=== PATIENT | female | born 1970 | race Caucasian/White ===

== ENCOUNTER 2016-08-03 08:42 | Inpatient (IN) | payer OTHER ==
[~2016-08-03] VITALS: Ht 152.4 cm; Wt 79.8 kg
[~2016-08-03 08:42] MED LIST: BUSP5TAB59 PO; FLUT0.0529 NAE; LISI-461 PO; OXYB5TAB PO; SYN112 PO; VENL-273 PO
[2016-08-03] MEDS ORDERED: SODIUM CHLORIDE 0.9% 1000ML 1,000 ML IV SCH (08:51)
--- NOTE | 2016-08-03 09:07 | DIAGNOSTIC IMAGING REPORT ---
CT OF THE HEAD WITHOUT CONTRAST CLINICAL HISTORY: The liver. Numbness and tingling in arm and face. COMPARISON STUDY: Head CT November 30, 2014. CT DOSE: 569.73 mGy.cm TECHNIQUE: Helical axial images of the head were obtained without IV contrast. Automated exposure control was utilized for the study. FINDINGS: No acute intracranial hemorrhage, midline shift or mass effect is present. Ventricular system is normal. Basilar cisterns are patent. There are no extra-axial collections. Jewell-white differentiation is maintained and there are no findings to suggest acute dural sinus thrombosis or acute territorial infarct. There are no significant calvarial abnormalities. Visualized portions of the sinuses and the metatarsals are clear. IMPRESSION: No acute intracranial findings. Electronically signed by: Xander Garsia M.D. 08/03/2016 9:06 AM Dictated Date/Time: 08/03/2016 8:58 AM
--- NOTE | 2016-08-03 09:15 | EMERGENCY ROOM VISIT NOTE ---
History Report prepared by Vinnie: Meredith Singh Under the Supervision of: Dr. Benigno Holman M.D. First contact with patient: 08:49 Stated Complaint: NUMBNESS/TINGLING ARM AND FACE History of Present Illness The patient is a 46 year old female who presents to the Emergency Room via ALS with complaints of persistent left facial numbness that began 50 minutes prior to arrival. The patient reports that she has had similar symptoms in the past, noting that she has had previous CT scans. She states that she first noticed a high pitched sound in her left ear that then developed into static noises in her bilateral ears. The patient reports that she became dizzy and then noticed left facial numbness. She additionally associates left arm weakness. The patient associates nausea with her symptoms today that has been resolving. She states that she has a history of hypertension. Source of History: patient Onset: 50 minutes prior to arrival Position: other (facial, left side) Quality: numbness Timing: other (persistent) Associated Symptoms: + nausea, + weakness (left arm) Note: Associated Symtpoms: high pitched sound in left ear, static noise in bilateral ears, dizziness Review of Systems See HPI for pertinent positives & negatives. A total of 10 systems reviewed and were otherwise negative. Past Medical & Surgical Medical Problems: (1) History of kidney stones (2) HTN (hypertension) (3) TIA (transient ischemic attack) Surgical Problems: (1) History of hysterectomy Family History Cancer Diabetes mellitus Gallbladder disease Heart disease Social History Smoking Status: Never Smoker Alcohol Use: none Drug Use: none Marital Status: Housing Status: lives with family Occupation Status: employed Current/Historical Medications Scheduled Buspirone Hcl (Buspirone Hcl), 5 MG PO BID Levothyroxine Sodium (Synthroid), 112 MCG PO DAILY Lisinopril (Zestril), 10 MG PO DAILY Oxybutynin Chloride (Oxybutynin Chloride Er), 5 MG PO DAILY Venlafaxine Hcl (Venlafaxine Hcl Er), 225 MG PO DAILY Allergies Coded Allergies: Sulfamethoxazole (Verified Allergy, Intermediate, hives, 08/03/16) Erythromycin (Unverified Allergy, Mild, 08/03/16) Clarithromycin (Verified Allergy, Unknown, 08/03/16) Physical Exam Vital Signs Date Time Temp Pulse Resp B/P Pulse Ox O2 Delivery O2 Flow Rate FiO2 08/03/16 12:00 70 16 134/84 96 Room Air 08/03/16 10:55 77 15 94 08/03/16 10:50 83 19 96 08/03/16 10:49 132/87 08/03/16 10:45 79 18 95 08/03/16 09:27 78 16 95 Room Air 08/03/16 09:22 76 15 96 Room Air 08/03/16 09:17 80 16 96 Room Air 08/03/16 09:16 131/93 08/03/16 09:12 77 13 97 Room Air 08/03/16 09:11 140/89 08/03/16 09:07 78 17 98 Room Air 08/03/16 09:04 82 08/03/16 09:02 117/67 08/03/16 08:55 94 Room Air 08/03/16 08:55 37.3 76 18 117/67 97 Room Air Physical Exam GENERAL: Patient awake, alert, oriented x 3. Patient follows commands. Patient does not appear toxic. Patient is adequately hydrated and well- nourished. SKIN: No erythema, pallor, cyanosis or rash HEENT: Normal head, pupils equal, reactive to light and accommodation. Ears normal. Oral cavity and posterior pharynx appear normal. Neck: Without adenopathy, no neck vein distention. LUNGS: Clear to auscultation. No wheezes, no rales, no rhonchi. HEART: No murmurs. No gallops. No rubs ABDOMEN: No masses, no rebound, no hepatomegaly or splenomegaly. EXTREMITIES: No signs of trauma. No pedal or pretibial edema. No calf or thigh tenderness. NEUROLOGIC: Patient complains of some slight numbness on the left side of face, NIH stroke score of 1, no facial droop. Medical Decision & Procedures ER Provider Diagnostic Interpretation: Radiology results as stated below per my review and radiologist interpretation: CT OF THE HEAD WITHOUT CONTRAST CLINICAL HISTORY: The liver. Numbness and tingling in arm and face. COMPARISON STUDY: Head CT November 30, 2014. CT DOSE: 569.73 mGy.cm TECHNIQUE: Helical axial images of the head were obtained without IV contrast. Automated exposure control was utilized for the study. FINDINGS: No acute intracranial hemorrhage, midline shift or mass effect is present. Ventricular system is normal. Basilar cisterns are patent. There are no extra-axial collections. Jewell-white differentiation is maintained and there are no findings to suggest acute dural sinus thrombosis or acute territorial infarct. There are no significant calvarial abnormalities. Visualized portions of the sinuses and the metatarsals are clear. IMPRESSION: No acute intracranial findings. Electronically signed by: Xander Garsia M.D. 08/03/2016 9:06 AM Dictated Date/Time: 08/03/2016 8:58 AM NECK MRA HISTORY: Left face and arm numbness. stroke? TECHNIQUE: [id number] and gadolinium-enhanced MRA of the neck was performed both before and after the intravenous administration of contrast. All measurements were calculated based on NASCET criteria. COMPARISON STUDY: None. FINDINGS: The aortic arch and proximal great vessels are widely patent. There is no significant stenosis, occlusion, or dissection identified within the bilateral common carotid, internal carotid, or vertebral arteries. 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 The proximal portion of the right subclavian artery is not well visualized. IMPRESSION: No significant stenosis, occlusion, or dissection identified within the carotid or vertebral arteries. Electronically signed by: Quentin Barraza M.D. 08/03/2016 2:24 PM Dictated Date/Time: 08/03/2016 2:20 PM The status of this report is Signed. Draft = Not yet reviewed or approved by Radiologist. Signed = Reviewed and approved by Radiologist. Brain MRA HISTORY: Left face and arm numbness. Stroke symptoms. TECHNIQUE: 3-D [id number] MRA of the brain was performed without contrast. COMPARISON STUDY: Head CT 08/03/2016. FINDINGS: Visualized intracranial internal carotid arteries, distal vertebral arteries, and basilar artery are widely patent. There is no significant stenosis, occlusion, or aneurysm seen within the bilateral ACAs, MCAs, or third hand. Incidental note is made of a hypoplastic distal right vertebral artery and right A1 segment. IMPRESSION: No significant stenosis, occlusion, or aneurysm within the [place]. Electronically signed by: Quentin Barraza M.D. 08/03/2016 2:14 PM Dictated Date/Time: 08/03/2016 2:11 PM The patient's brain MRI report is pending. Laboratory Results 08/03/16 09:10 Red Blood Count 4.89, Mean Corpuscular Volume 86.9, Mean Corpuscular Hemoglobin 29.7, Mean Corpuscular Hemoglobin Concent 34.1, Mean Platelet Volume 9.1, Neutrophils (%) (Auto) 42.0, Lymphocytes (%) (Auto) 43.8, Monocytes (%) (Auto) 7.9, Eosinophils (%) (Auto) 5.1, Basophils (%) (Auto) 0.8, Neutrophils # (Auto) 3.05, Lymphocytes # (Auto) 3.18, Monocytes # (Auto) 0.57, Eosinophils # (Auto) 0.37, Basophils # (Auto) 0.06 08/03/16 09:10 Test 08/03/16 09:03 08/03/16 09:10 08/03/16 09:12 Bedside Prothrombin Time INR 0.9 (0.9-1.1) Bedside Glucose 110 mg/dl (70-90) White Blood Count 7.26 K/uL (4.8-10.8) Red Blood Count 4.89 M/uL (4.2-5.4) Hemoglobin 14.5 g/dL (12.0-16.0) Hematocrit 42.5 % (37-47) Mean Corpuscular Volume 86.9 fL (80-100) Mean Corpuscular Hemoglobin 29.7 pg (25-34) Mean Corpuscular Hemoglobin Concent 34.1 g/dl (32-36) Platelet Count 310 K/uL (130-400) Mean Platelet Volume 9.1 fL (7.4-10.4) Neutrophils (%) (Auto) 42.0 % Lymphocytes (%) (Auto) 43.8 % Monocytes (%) (Auto) 7.9 % Eosinophils (%) (Auto) 5.1 % Basophils (%) (Auto) 0.8 % Neutrophils # (Auto) 3.05 K/uL (1.4-6.5) Lymphocytes # (Auto) 3.18 K/uL (1.2-3.4) Monocytes # (Auto) 0.57 K/uL (0.11-0.59) Eosinophils # (Auto) 0.37 K/uL (0-0.5) Basophils # (Auto) 0.06 K/uL (0-0.2) RDW Standard Deviation 41.8 fL (36.4-46.3) RDW Coefficient of Variation 13.0 % (11.5-14.5) Immature Granulocyte % (Auto) 0.4 % Immature Granulocyte # (Auto) 0.03 K/uL (0.00-0.02) Prothrombin Time 10.4 SECONDS (9.0-12.0) Prothromb Time International Ratio 1.0 (0.9-1.1) Activated Partial Thromboplast Time 25.9 SECONDS (21.0-31.0) Partial Thromboplastin Ratio 1.0 Anion Gap 7.0 mmol/L (3-11) Est Creatinine Clear Calc Drug Dose 83.0 ml/min Estimated GFR () 102.6 Estimated GFR (Non- 88.5 BUN/Creatinine Ratio 17.8 (10-20) Calcium Level 9.2 mg/dl (8.5-10.1) Total Creatine Kinase 105 U/L (26-192) Creatine Kinase MB 1.4 ng/ml (0.5-3.6) Creatine Kinase MB Ratio 1.3 (0-3.0) Troponin I < 0.015 ng/ml (0-0.045) Estimated Average Glucose 120 mg/dl Hemoglobin A1c 5.8 % (4.5-5.6) Laboratory results as stated above per my review. Medications Administered Medications (Trade) Dose Ordered Sig/Harley Route Start Time Stop Time Status Last Admin Dose Admin Sodium Chloride (Nss 1000ml) 1,000 ml @ 50 mls/hr Q20H IV 08/03/16 08:51 08/03/16 13:39 DC 08/03/16 09:29 50 MLS/HR Aspirin (Ecotrin Tab) 325 mg ONE ONCE PO 08/03/16 10:00 08/03/16 10:01 DC 08/03/16 10:02 325 MG ECG Indication: weakness, other (numbness) Rate (beats per minute): 78 Rhythm: normal sinus Findings: nonspecific-ST abn, other (sinus arrhythmia) ED Course 0850: Past medical records reviewed. The patient was evaluated in room B1. A complete history and physical examination was performed. 850: The patient was taken right over for a CT scan. Ordered Sodium Chloride 1000 ml @ 50 mls/hr IV. 01: I arrived back to the patient's room to reevaluate the patient. 904: I discussed the patients case with Dr. Garsia, Radiology. 0906: I discussed the patients case with Krissy [facility]. He is going to evaluate the patient over the Stroke Cart. 0936: I reevaluated the patient and she is currently being examined by Dr. Cruz. 0950: I reevaluated the patient and Dr. Cruz has decided that the patient needs aspirin and an MRI at this time. 1000: Ordered Aspirin 325 mg PO. 1220: I reevaluated the patient and she is resting comfortably, awaiting an MRI. I discussed the exam findings with her thus far and I discussed the treatment plan. She verbalized complete understanding and agreement. She will be evaluated for further treatment. 1226: I discussed the patients case with Kelechi Nash PA-C. She is going to evaluate the patient for further treatment. 1235: I reevaluated the patient at this time and she is doing well. I updated her as well. Medical Decision Nurses notes reviewed. Medical history sheet reviewed. Differential diagnosis includes but is not limited to: CVA, TIA, Meniere's Disease, vertigo, vestibular neuronitis. The patient is here with rather sudden onset of left facial tingling and left arm heaviness. Patient also had an unusual piercing sound in both ears at onset prior to arrival. A stroke alert was called and the patient had multiple imaging and labs performed. We see above. CT scan did not reveal a hemorrhagic stroke. Her NIH stroke score was extremely low and therefore she did not meet criteria for TPA. This case was discussed with the Kriss[facility] neurologist. Tele stroke was used. MRI was also ordered but the results of that test are not yet back. In the meantime, the patient will require further evaluation in the hospital. I discussed care with the patient, her and with the hospitalist in addition to the stroke neurologist. Consults Time Called: 902 Consulting Physician: Krissy [facility] Returned Call: [phone] I discussed the patients case with Krissy [facility] Neu[facility]. He is going to evaluate the patient over the Stroke Cart. Additional Consults: Time Called: 1223 Consulted Physician: Kelechi Nash PA-C Returned Call: [phone] Additional Comments: I discussed the patients case with Kelechi Nash PA-C. She is going to evaluate the patient for further treatment. Impression Primary Impression: Stroke-like symptoms Scribe Attestation The scribe's documentation has been prepared under my direction and personally reviewed by me in its entirety. I confirm that the note above accurately reflects all work, treatment, procedures, and medical decision making performed by me. Departure Information Dispostion Being Evaluated By Hospitalist Referrals Filemon Smith M.D. (PCP) Stroke History Time Last Known Well 0800 Stroke t-PA Criteria Reviewed Does NOT meet criteria for t-PA Reason t-PA Not Given Treatment not indicated (Low NIH stroke score)
[2016-08-03 09:20] LABS: BASO % 0.8 %; BASO ABS # 0.06 K/uL (0-0.2); COMPLETE YES; EOS % 5.1 %; HEMATOCRIT 42.5 % (37-47); IG% 0.4 %; LYMPH % 43.8 %; LYMPH ABS # 3.18 K/uL (1.2-3.4); MEAN CELL VOLUME 86.9 fL (80-100); MEAN CORPUSCULAR HEMOGLOBIN 29.7 pg (25-34); MEAN CORPUSCULAR HGB CONC 34.1 g/dl (32-36); MEAN PLATELET VOLUME 9.1 fL (7.4-10.4); MONO % 7.9 %; PLATELET COUNT 310 K/uL (130-400); RED BLOOD COUNT 4.89 M/uL (4.2-5.4); WHITE BLOOD COUNT 7.26 K/uL (4.8-10.8)
[2016-08-03 09:30] LABS: PROTHROMBIN TIME (PATIENT) 10.4 SECONDS (9.0-12.0)
[2016-08-03 09:46] LABS: BLOOD UREA NITROGEN 14 mg/dl (7-18); BUN/CREATININE RATIO 17.8 (10-20); CARBON DIOXIDE 29 mmol/L (21-32); CHLORIDE 102 mmol/L (98-107); CREATININE 0.79 mg/dl (0.60-1.20); GLUCOSE 104 mg/dl (70-99); POTASSIUM 3.6 mmol/L (3.5-5.1); SODIUM 138 mmol/L (136-145)
[2016-08-03 09:50] LABS: CKMB/CK RATIO 1.3 (0-3.0)
[2016-08-03 09:51] LABS: CALCIUM 9.2 mg/dl (8.5-10.1)
[2016-08-03] MEDS ORDERED: FLUT0.15 NAE (09:55)
[2016-08-03] MEDS ORDERED: ASPIRIN 325 MG ECTAB PO ONE (10:00)
[2016-08-03] MEDS ORDERED: ONDANSETRON INJ 2 MG/ML 2 ML VIAL IV PRN (13:15)
[2016-08-03] MEDS ORDERED: PHARMACIST DISCHARGE MED REC CONSULT PRN (13:15)
[2016-08-03 13:57] LABS: ESTIMATED AVERAGE GLUCOSE 120 mg/dl; HA1C FLAG Normal (Normal)
--- NOTE | 2016-08-03 14:15 | DIAGNOSTIC IMAGING REPORT ---
Brain MRA HISTORY: Left face and arm numbness. Stroke symptoms. TECHNIQUE: 3-D [id number] MRA of the brain was performed without contrast. COMPARISON STUDY: Head CT 08/03/2016. FINDINGS: Visualized intracranial internal carotid arteries, distal vertebral arteries, and basilar artery are widely patent. There is no significant stenosis, occlusion, or aneurysm seen within the bilateral ACAs, MCAs, or sheriffs officer. Incidental note is made of a hypoplastic distal right vertebral artery and right A1 segment. IMPRESSION: No significant stenosis, occlusion, or aneurysm within the [place]. Electronically signed by: Quentin Barraza M.D. 08/03/2016 2:14 PM Dictated Date/Time: 08/03/2016 2:11 PM
[2016-08-03 14:25] VITALS: BP 117/84; PULSE 79; TEMP 36.7; O2SAT 97; Ht 152.4 cm; Wt 79.8 kg
--- NOTE | 2016-08-03 14:25 | DIAGNOSTIC IMAGING REPORT ---
NECK MRA HISTORY: Left face and arm numbness. stroke? TECHNIQUE: [id number] and gadolinium-enhanced MRA of the neck was performed both before and after the intravenous administration of contrast. All measurements were calculated based on NASCET criteria. COMPARISON STUDY: None. FINDINGS: The aortic arch and proximal great vessels are widely patent. There is no significant stenosis, occlusion, or dissection identified within the bilateral common carotid, internal carotid, or vertebral arteries. 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 The proximal portion of the right subclavian artery is not well visualized. IMPRESSION: No significant stenosis, occlusion, or dissection identified within the carotid or vertebral arteries. Electronically signed by: Quentin Barraza M.D. 08/03/2016 2:24 PM Dictated Date/Time: 08/03/2016 2:20 PM
--- NOTE | 2016-08-03 14:50 | DIAGNOSTIC IMAGING REPORT ---
MRI OF THE BRAIN COMBO CLINICAL HISTORY: Left facial and left upper extremity tingling/numbness. COMPARISON STUDY: CT of the brain dated 08/03/2016. MRI of the brain dated 01/24/2008. TECHNIQUE: MRI of the brain was performed utilizing various T1 and T2-weighted sequences in the axial, sagittal, and coronal planes. Contrast-enhanced sequences were acquired following the administration of 8 cc of Gadavist. FINDINGS: Brain parenchyma: A 9 mm enhancing pineal nodule has not significant change from 2008. The brain parenchyma is otherwise normal in appearance. There is no hemorrhage or mass effect. There is no restricted diffusion to suggest acute ischemia. No enhancing mass lesion is identified on the postcontrast images. Jewell-white matter differentiation is preserved. No extra-axial fluid collection is seen. The cerebellar tonsils are normal in configuration. Ventricles, sulci, and cisterns: Normal in configuration. Pituitary and sella: Partially empty sella is incidentally noted. Intracranial vasculature: Normal flow voids are maintained at the skull base. Orbits: The bony orbits are grossly intact. Orbital contents are normal in appearance. Sinuses and mastoids: Clear. Calvarium: Unremarkable. Cervical cord: Partially visualized cervical spinal cord is normal in morphology and signal intensity. IMPRESSION: 1. No acute intracranial abnormality. 2. A 9 mm enhancing pineal nodule has not significant changed dating back to 2007. Electronically signed by: Luis Sarabia M.D. 08/03/2016 2:49 PM Dictated Date/Time: 08/03/2016 2:43 PM
[2016-08-03] MEDS: SODIUM CHLORIDE 0.9% 1000ML 1,000 ML IV SCH (15:17)
--- NOTE | 2016-08-03 15:42 | History and Physical ---
History & Physical Date of Service August 03, 2016. History & Physical This is a 46 year old female with a PMH of hypothyroidism, HTN, depression/ anxiety, overactive bladder presents with facial numbness, L sided ear pain, high pitched sounds and dizziness. She states it began earlier today and she came to the ER; stroke alert was called and [facility] tele stroke consult obtained ; no indication for t-PA. Head CT obtained, and no acute findings. Recommendation to give full dose aspirin and then obtain MRI/MRA and stroke w/ up. I saw the patient in room 207, her only complaint is a left sided facial numbness. No dizziness or headaches at this time. No motor dysfunction. VITALS: Last Vital Signs Documentation Date Time Temp Pulse Resp B/P Pulse Ox O2 Delivery O2 Flow Rate FiO2 08/03/16 14:25 36.7 79 16 117/84 97 Room Air GEN: no acute distress HEENT: no facial droop noted CVS: +s1, s2, rrr LUNGS: cta b/l, no wheezing NEURO: CN II-XII intact, subjective numbness/tingling at L face Numbness/Tingling of L side of Face Head CT negative Brain MRI/MRA of head/neck negative for acute findings echo done and results pending will check [place], B12, TSH, Mg neuro consult pending Can hold Lisinopril for HTN Otherwise, we will restart synthroid, Effexor, Buspar, and oxybutynin PT/OT/speech
[2016-08-03 16:00] VITALS: O2SAT 98
--- NOTE | 2016-08-03 16:03 | Neurology Consultation ---
Neurology Consultation Date of Consultation: August 03, 2016. Attending Physician: Angela Amor DO Primary Care Physician: Filemon Smith M.D. Reason for Consultation: stroke like symptoms possible TIA History of Present Illness Source: patient Mónica is a 46 year old female who has a PMH HTN, hypothyroid and remote history of migraines. She was working at [employer] and she started having a high pitched sound in her ears which resolved in seconds she was dizzy and nausea she sat down and then she had persistent left facial numbness and tingling and left arm tingling. She states everything has resolved but she still has and odd feeling in her face and arm but the numbness and tingling has resolved. Her history of migraine she would have visual aura light sensitive and then a headache. She did have a headache in the ED which was not severe but it was there. She has been in the [facility] recently but denies any tick bites. denies CP, SOB, abdominal pain, vision changes, vomiting, swallow difficulty, slurred speech, falls, hearing loss Past Medical/Surgical History Medical Problems: (1) Stroke-like symptoms Status: Acute Social History Smoking Status: Never smoker Drug Use: none Marital Status: Housing Status: lives with family Occupation Status: employed Allergies Coded Allergies: Sulfamethoxazole (Verified Allergy, Intermediate, hives, 08/03/16) Erythromycin (Unverified Allergy, Mild, 08/03/16) Clarithromycin (Verified Allergy, Unknown, 08/03/16) Current Inpatient Medications Current Inpatient Medications Medications (Trade) Dose Ordered Sig/Harley Route Start Time Stop Time Status Last Admin Dose Admin Acetaminophen (Tylenol Tab) 650 mg Q4H PRN PO 08/03/16 13:15 09/02/16 13:14 Ondansetron HCl (Zofran Inj) 4 mg Q6H PRN IV 08/03/16 13:15 09/02/16 13:14 Atorvastatin Calcium (Lipitor Tab) 40 mg HS ONCE PO 08/03/16 21:00 08/03/16 21:01 Aspirin (Ecotrin Tab) 81 mg QAM PO 08/04/16 09:00 09/03/16 08:59 Miscellaneous Information 1 ea 1 ea UD PRN N/A 08/03/16 13:15 09/02/16 13:14 Sodium Chloride (Nss 1000ml) 1,000 ml @ 100 mls/hr Q10H IV 08/03/16 13:45 09/02/16 13:44 08/03/16 15:17 100 MLS/HR Buspirone HCl (Buspar Tab) 5 mg BID PO 08/03/16 21:00 09/02/16 20:59 Levothyroxine Sodium (Synthroid Tab) 112 mcg DAILYBB PO 08/04/16 06:00 09/03/16 05:59 Oxybutynin Chloride (Ditropan-Xl Tab) 5 mg DAILY PO 08/04/16 09:00 09/03/16 08:59 Venlafaxine HCl (effeXOR EXTENDED REL CAP) 225 mg DAILY PO 08/04/16 09:00 09/03/16 08:59 Physical Exam Vital Signs (Past 24 Hrs): Date Time Temp Pulse Resp B/P Pulse Ox O2 Delivery O2 Flow Rate FiO2 08/03/16 14:25 36.7 79 16 117/84 97 Room Air 08/03/16 13:14 37.3 75 18 116/87 95 08/03/16 12:48 78 08/03/16 12:00 70 16 134/84 96 Room Air 08/03/16 10:55 77 15 94 08/03/16 10:50 83 19 96 08/03/16 10:49 132/87 08/03/16 10:45 79 18 95 08/03/16 09:27 78 16 95 Room Air 08/03/16 09:22 76 15 96 Room Air 08/03/16 09:17 80 16 96 Room Air 08/03/16 09:16 131/93 08/03/16 09:12 77 13 97 Room Air 08/03/16 09:11 140/89 08/03/16 09:07 78 17 98 Room Air 08/03/16 09:04 82 08/03/16 09:02 117/67 08/03/16 08:55 94 Room Air 08/03/16 08:55 37.3 76 18 117/67 97 Room Air Physical Exam: Constitutional: appearance nourished, healthy and normal Ears, Nose, Mouth and Throat: left ear erythema, left face erythema Cardiovascular: normal S-1 and S-2 and regular rate and rhythm Respiratory: clear to auscultation (CTA) and no rales, rhonchi or wheeze Musculoskeletal: no peripheral edema and good distal pulses Skin: erythema left ear and face Eyes: extraocular muscles intact (EOMI) and pupils equal, round and reactive to light (PERRL), slight nystagmus to the left, miotic NEUROLOGIC EXAMINATION: Mental status: Alert and interactive Oriented to full date and location Oriented to person Speech fluent with no evidence of aphasia Cranial Nerves facial symmetry, tongue midline Reflexes: Deep tendon reflexes were symmetrical and graded 2/5. Plantar responses were flexor. Sensory: increased cool sensation on left ear and face Coordination: finger to nose with no bi pass, no tremor Gait/Stance: Posture normal. sitting up in bed Motor: Negative for pronator drift of out stretched arms with eyes closed. biceps triceps deltoids bilaterally 5/5, hip flex plantar flex ext bilaterally 5 /5 Laboratory Results Past 24 Hours: 08/03/16 09:10 Red Blood Count 4.89, Mean Corpuscular Volume 86.9, Mean Corpuscular Hemoglobin 29.7, Mean Corpuscular Hemoglobin Concent 34.1, Mean Platelet Volume 9.1, Neutrophils (%) (Auto) 42.0, Lymphocytes (%) (Auto) 43.8, Monocytes (%) (Auto) 7.9, Eosinophils (%) (Auto) 5.1, Basophils (%) (Auto) 0.8, Neutrophils # (Auto) 3.05, Lymphocytes # (Auto) 3.18, Monocytes # (Auto) 0.57, Eosinophils # (Auto) 0.37, Basophils # (Auto) 0.06 08/03/16 09:10 Test 08/03/16 09:03 08/03/16 09:10 08/03/16 09:12 Bedside Prothrombin Time INR 0.9 (0.9-1.1) Bedside Glucose 110 mg/dl (70-90) White Blood Count 7.26 K/uL (4.8-10.8) Red Blood Count 4.89 M/uL (4.2-5.4) Hemoglobin 14.5 g/dL (12.0-16.0) Hematocrit 42.5 % (37-47) Mean Corpuscular Volume 86.9 fL (80-100) Mean Corpuscular Hemoglobin 29.7 pg (25-34) Mean Corpuscular Hemoglobin Concent 34.1 g/dl (32-36) Platelet Count 310 K/uL (130-400) Mean Platelet Volume 9.1 fL (7.4-10.4) Neutrophils (%) (Auto) 42.0 % Lymphocytes (%) (Auto) 43.8 % Monocytes (%) (Auto) 7.9 % Eosinophils (%) (Auto) 5.1 % Basophils (%) (Auto) 0.8 % Neutrophils # (Auto) 3.05 K/uL (1.4-6.5) Lymphocytes # (Auto) 3.18 K/uL (1.2-3.4) Monocytes # (Auto) 0.57 K/uL (0.11-0.59) Eosinophils # (Auto) 0.37 K/uL (0-0.5) Basophils # (Auto) 0.06 K/uL (0-0.2) RDW Standard Deviation 41.8 fL (36.4-46.3) RDW Coefficient of Variation 13.0 % (11.5-14.5) Immature Granulocyte % (Auto) 0.4 % Immature Granulocyte # (Auto) 0.03 K/uL (0.00-0.02) Prothrombin Time 10.4 SECONDS (9.0-12.0) Prothromb Time International Ratio 1.0 (0.9-1.1) Activated Partial Thromboplast Time 25.9 SECONDS (21.0-31.0) Partial Thromboplastin Ratio 1.0 Anion Gap 7.0 mmol/L (3-11) Est Creatinine Clear Calc Drug Dose 83.0 ml/min Estimated GFR () 102.6 Estimated GFR (Non- 88.5 BUN/Creatinine Ratio 17.8 (10-20) Calcium Level 9.2 mg/dl (8.5-10.1) Total Creatine Kinase 105 U/L (26-192) Creatine Kinase MB 1.4 ng/ml (0.5-3.6) Creatine Kinase MB Ratio 1.3 (0-3.0) Troponin I < 0.015 ng/ml (0-0.045) Estimated Average Glucose 120 mg/dl Hemoglobin A1c 5.8 % (4.5-5.6) Imaging MRI brain with and without contrast-No acute intracranial abnormality. A 9 mm enhancing pineal nodule has not significant changed dating back to 2007. MRA brain - No significant stenosis, occlusion, or aneurysm within the [place]. MRA neck- No significant stenosis, occlusion, or dissection identified within the carotid or vertebral arteries. Impression 46 year old female with left face and arm numbness,tingling Plan 1. MRI and MRA head and neck -no acute findings 2. TTE pending read 3. labs TSH, B12, lyme pending 4. aspirin 81 mg started no on at home- would continue 5. no further imaging needed at this time 6. unclear what the event was 7. will see as outpatient as needed 8. optimize HTN, and cholestrol I have seen and discussed above patient with Dr Thu Garza, neurology Pt seen and examined. Pt is known to me and for years has had L hemianesthesia without identifiable case but indicates that this had resolved. Hx of brief vertigo in past. Today, tinnitus L ear and static bl ears then L hemianesthesia and possible sense that room spinning, with nausea worse with movement. No real headache. Nausea vertigo, tinnitus resolved quickly but residual L hemianesthesia. MRI/A despite ongoing sx neg. Exam provocative head manuevers neg, CN notable for temperature being colder on the anesthetic side and splitting vibration in the forehead with the anesthetic side having more vibration. Rest of exam including motor, sensory, cerebellar gait, reflexes and Romberg were neg or nml. Impression: Unclear nature of sx, possibly peripheral vertigo causing some anxiety and increase in prior neurologic symptoms. There are some nonphysiologic features on exam. Agree with completion of evaluation vascular risk factors. No objection to asa given her hx of hypertension. Dr. Marshall with see pt in follow-up tomorrow. ISAURO Garza MD
[2016-08-03 16:35] VITALS: BP 140/82; PULSE 70; TEMP 36.7; O2SAT 93
[2016-08-03 19:21] VITALS: BP 115/73; PULSE 74; TEMP 36.4; O2SAT 97
[2016-08-03] MEDS: ACETAMINOPHEN 325 MG TAB PO PRN ×2 (19:23→23:24)
[2016-08-03 20:00] VITALS: O2SAT 97
[2016-08-03] MEDS ORDERED: ATORVASTATIN 40 MG TAB PO ONE (21:00)
--- NOTE | 2016-08-03 22:24 | History and Physical ---
History & Physical Date & Time of Service: August 03, 2016 at 17:17 Chief Complaint: Stroke-Like Symptoms, Tia Primary Care Physician: Filemon Smith M.D. History of Present Illness Source: patient, clinic records This is a 46 y/o female with PMH of HTN, hypothyroidism, depression, anxiety, and other problems listed below who presents to the ED with stroke like symptoms. The patient states at 8 am this morning while working in [employer] [facility] she developed left ear high pitched noise and static in both ears, dizziness described as spinning, left facial numbness, left arm heaviness, and nausea. Pt states dizziness and nausea worsened with movement. All symptoms are now resolved except left facial numbness. She reports in the ER she started having a mild dull frontal MCRAE. Prior to this morning she was feeling well. This morning had her usual breakfast of protein drink and coffee. She denies vision change, facial droop, speech or swallowing difficulty, hearing loss, URI symptoms, cough, chest pain, palpitations, SOB, vomiting, diarrhea, dysuria, frequency, calf pain, edema, abnormal bleeding. Past Medical/Surgical History Medical Problems: (1) History of kidney stones Status: Chronic (2) HTN (hypertension) Status: Chronic Surgical Problems: (1) History of hysterectomy Status: Resolved Family History Cancer Diabetes mellitus Gallbladder disease Heart disease No fhx CVA. Social History Smoking Status: Former Smoker (quit 20 y ago) Alcohol Use: socially Drug Use: none Marital Status: Occupational Status: employed Multi-Drug Resistant Organisms History of MDRO: No Allergies Coded Allergies: Sulfamethoxazole (Verified Allergy, Intermediate, hives, 08/03/16) Erythromycin (Unverified Allergy, Mild, 08/03/16) Clarithromycin (Verified Allergy, Unknown, 08/03/16) Home Medications Scheduled Buspirone Hcl (Buspirone Hcl), 5 MG PO BID Levothyroxine Sodium (Synthroid), 112 MCG PO DAILY Lisinopril (Zestril), 10 MG PO DAILY Oxybutynin Chloride (Oxybutynin Chloride Er), 5 MG PO DAILY Venlafaxine Hcl (Venlafaxine Hcl Er), 225 MG PO DAILY Review of Systems Ten systems reviewed and negative except as noted in HPI. Physical Exam Vital Signs Date Time Temp Pulse Resp B/P Pulse Ox O2 Delivery O2 Flow Rate FiO2 08/03/16 16:35 36.7 70 18 140/82 93 Room Air 08/03/16 16:00 98 Room Air 08/03/16 14:25 36.7 79 16 117/84 97 Room Air 08/03/16 13:14 37.3 75 18 116/87 95 08/03/16 12:48 78 08/03/16 12:00 70 16 134/84 96 Room Air 08/03/16 10:55 77 15 94 08/03/16 10:50 83 19 96 08/03/16 10:49 132/87 08/03/16 10:45 79 18 95 08/03/16 09:27 78 16 95 Room Air 08/03/16 09:22 76 15 96 Room Air 08/03/16 09:17 80 16 96 Room Air 08/03/16 09:16 131/93 08/03/16 09:12 77 13 97 Room Air 08/03/16 09:11 140/89 08/03/16 09:07 78 17 98 Room Air 08/03/16 09:04 82 08/03/16 09:02 117/67 08/03/16 08:55 94 Room Air 08/03/16 08:55 37.3 76 18 117/67 97 Room Air General Appearance: WD/WN, no apparent distress, + pertinent finding (pleasant alert 46 y/o female, at bedside ) Head: normocephalic, atraumatic Eyes: normal inspection, PERRL, EOMI ENT: normal ENT inspection, hearing grossly normal, TMs normal, pharynx normal Neck: no JVD, trachea midline Respiratory/Chest: lungs clear, normal breath sounds, no respiratory distress, no accessory muscle use Cardiovascular: regular rate, rhythm, no murmur Abdomen/GI: normal bowel sounds, non tender, soft Extremities/Musculoskelatal: no calf tenderness, no pedal edema Neurologic/Psych: alert, normal mood/affect, oriented x 3, + pertinent finding (no facial droop. no dysarthria. + subjective decreased sensation on left face. no motor or sensory deficits of the extremities.) Skin: normal color, warm/dry Diagnostics Laboratory Results Results Past 24 Hours Test 08/03/16 09:03 08/03/16 09:10 08/03/16 09:12 Range/Units Bedside Prothrombin Time INR 0.9 0.9-1.1 Bedside Glucose 110 70-90 mg/dl White Blood Count 7.26 4.8-10.8 K/uL Red Blood Count 4.89 4.2-5.4 M/uL Hemoglobin 14.5 12.0-16.0 g/dL Hematocrit 42.5 37-47 % Mean Corpuscular Volume 86.9 80-100 fL Mean Corpuscular Hemoglobin 29.7 25-34 pg Mean Corpuscular Hemoglobin Concent 34.1 32-36 g/dl Platelet Count 310 130-400 K/uL Mean Platelet Volume 9.1 7.4-10.4 fL Neutrophils (%) (Auto) 42.0 % Lymphocytes (%) (Auto) 43.8 % Monocytes (%) (Auto) 7.9 % Eosinophils (%) (Auto) 5.1 % Basophils (%) (Auto) 0.8 % Neutrophils # (Auto) 3.05 1.4-6.5 K/uL Lymphocytes # (Auto) 3.18 1.2-3.4 K/uL Monocytes # (Auto) 0.57 0.11-0.59 K/uL Eosinophils # (Auto) 0.37 0-0.5 K/uL Basophils # (Auto) 0.06 0-0.2 K/uL RDW Standard Deviation 41.8 36.4-46.3 fL RDW Coefficient of Variation 13.0 11.5-14.5 % Immature Granulocyte % (Auto) 0.4 % Immature Granulocyte # (Auto) 0.03 0.00-0.02 K/uL Prothrombin Time 10.4 9.0-12.0 SECONDS Prothromb Time International Ratio 1.0 0.9-1.1 Activated Partial Thromboplast Time 25.9 21.0-31.0 SECONDS Partial Thromboplastin Ratio 1.0 Sodium Level 138 136-145 mmol/L Potassium Level 3.6 3.5-5.1 mmol/L Chloride Level 102 98-107 mmol/L Carbon Dioxide Level 29 21-32 mmol/L Anion Gap 7.0 3-11 mmol/L Blood Urea Nitrogen 14 7-18 mg/dl Creatinine 0.79 0.60-1.20 mg/dl Est Creatinine Clear Calc Drug Dose 83.0 ml/min Estimated GFR () 102.6 Estimated GFR (Non- 88.5 BUN/Creatinine Ratio 17.8 10-20 Random Glucose 104 70-99 mg/dl Calcium Level 9.2 8.5-10.1 mg/dl Total Creatine Kinase 105 26-192 U/L Creatine Kinase MB 1.4 0.5-3.6 ng/ml Creatine Kinase MB Ratio 1.3 0-3.0 Troponin I < 0.015 0-0.045 ng/ml Estimated Average Glucose 120 mg/dl Hemoglobin A1c 5.8 4.5-5.6 % Diagnostic Radiology CT OF THE HEAD WITHOUT CONTRAST CLINICAL HISTORY: The liver. Numbness and tingling in arm and face. COMPARISON STUDY: Head CT November 30, 2014. CT DOSE: 569.73 mGy.cm TECHNIQUE: Helical axial images of the head were obtained without IV contrast. Automated exposure control was utilized for the study. FINDINGS: No acute intracranial hemorrhage, midline shift or mass effect is present. Ventricular system is normal. Basilar cisterns are patent. There are no extra-axial collections. Jewell-white differentiation is maintained and there are no findings to suggest acute dural sinus thrombosis or acute territorial infarct. There are no significant calvarial abnormalities. Visualized portions of the sinuses and the metatarsals are clear. IMPRESSION: No acute intracranial findings. [~ rep ct add3]] NECK MRA HISTORY: Left face and arm numbness. stroke? TECHNIQUE: [id number] and gadolinium-enhanced MRA of the neck was performed both before and after the intravenous administration of contrast. All measurements were calculated based on NASCET criteria. COMPARISON STUDY: None. FINDINGS: The aortic arch and proximal great vessels are widely patent. There is no significant stenosis, occlusion, or dissection identified within the bilateral common carotid, internal carotid, or vertebral arteries. 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 The proximal portion of the right subclavian artery is not well visualized. IMPRESSION: No significant stenosis, occlusion, or dissection identified within the carotid or vertebral arteries. Brain MRA HISTORY: Left face and arm numbness. Stroke symptoms. TECHNIQUE: 3-D [id number] MRA of the brain was performed without contrast. COMPARISON STUDY: Head CT 08/03/2016. FINDINGS: Visualized intracranial internal carotid arteries, distal vertebral arteries, and basilar artery are widely patent. There is no significant stenosis, occlusion, or aneurysm seen within the bilateral ACAs, MCAs, or collar band creaser. Incidental note is made of a hypoplastic distal right vertebral artery and right A1 segment. IMPRESSION: No significant stenosis, occlusion, or aneurysm within the [place] of [place]. 8 MRI OF THE BRAIN COMBO CLINICAL HISTORY: Left facial and left upper extremity tingling/numbness. COMPARISON STUDY: CT of the brain dated 08/03/2016. MRI of the brain dated 01/24/2008. TECHNIQUE: MRI of the brain was performed utilizing various T1 and T2-weighted sequences in the axial, sagittal, and coronal planes. Contrast-enhanced sequences were acquired following the administration of 8 cc of Gadavist. FINDINGS: Brain parenchyma: A 9 mm enhancing pineal nodule has not significant change from 2007. The brain parenchyma is otherwise normal in appearance. There is no hemorrhage or mass effect. There is no restricted diffusion to suggest acute ischemia. No enhancing mass lesion is identified on the postcontrast images. Jewell-white matter differentiation is preserved. No extra-axial fluid collection is seen. The cerebellar tonsils are normal in configuration. Ventricles, sulci, and cisterns: Normal in configuration. Pituitary and sella: Partially empty sella is incidentally noted. Intracranial vasculature: Normal flow voids are maintained at the skull base. Orbits: The bony orbits are grossly intact. Orbital contents are normal in appearance. Sinuses and mastoids: Clear. Calvarium: Unremarkable. Cervical cord: Partially visualized cervical spinal cord is normal in morphology and signal intensity. IMPRESSION: 1. No acute intracranial abnormality. 2. A 9 mm enhancing pineal nodule has not significant changed dating back to 2007. EKG NSR with sinus arrhythmia, nonspecific T wave abnormality, no significant change from prior EKG Impression Assessment and Plan Patient seen in collaboration with Dr. Amor. Please see his addendum for assessment and plan. Advanced Directives Existing Living Will: No Existing Power of Master Carpenter: No VTE Prophylaxis VTE Risk Assessment Done? Y/N: Yes Risk Level: Low Given or contraindicated: SCD's
[2016-08-03 23:20] VITALS: BP 105/64; PULSE 73; TEMP 36.6; O2SAT 97
[2016-08-04] MEDS: SODIUM CHLORIDE 0.9% 1000ML 1,000 ML IV SCH ×2 (00:21→08:07)
[2016-08-04 03:25] VITALS: BP 113/79; PULSE 69; TEMP 36.7; O2SAT 96
[2016-08-04] MEDS ORDERED: LEVOTHYROXINE 112 MCG TAB PO SCH (06:00)
[2016-08-04 06:14] LABS: BASO % 0.9 %; BASO ABS # 0.06 K/uL (0-0.2); COMPLETE YES; EOS % 7.1 %; HEMATOCRIT 42.2 % (37-47); IG% 0.2 %; LYMPH % 47.1 %; MEAN CELL VOLUME 88.5 fL (80-100); MEAN CORPUSCULAR HEMOGLOBIN 29.6 pg (25-34); MEAN CORPUSCULAR HGB CONC 33.4 g/dl (32-36); MEAN PLATELET VOLUME 8.9 fL (7.4-10.4); MONO % 8.8 %; NEUT % 35.9 %; PLATELET COUNT 288 K/uL (130-400); RED BLOOD COUNT 4.77 M/uL (4.2-5.4); WHITE BLOOD COUNT 6.58 K/uL (4.8-10.8)
[2016-08-04 06:47] LABS: BUN/CREATININE RATIO 15.2 (10-20); CALCIUM 7.9 mg/dl (8.5-10.1); CREATININE 0.75 mg/dl (0.60-1.20); MAGNESIUM 2.1 mg/dl (1.8-2.4); POTASSIUM 3.9 mmol/L (3.5-5.1)
[2016-08-04 06:58] LABS: CHOLESTEROL/HDL RATIO 2.7; THYROID STIMULATING HORMONE 0.851 uIu/ml (0.300-4.500)
[2016-08-04 08:00] VITALS: O2SAT 96
[2016-08-04 08:10] VITALS: BP 122/83; PULSE 73; TEMP 36.6; O2SAT 96
--- NOTE | 2016-08-04 08:25 | ECHOCARDIOGRAM REPORT ---
*NOTICE TO RECEIVING REPUBLICAN AGENCY This information is strictly Confidential and protected under [place] law. [place] law prohibits you from making any further disclosure of this information unless further disclosure is expressly permitted by the written consent of the person to whom it pertains or is authorized by law. A general authorization for the release of medical or other information is not sufficient for this purpose. Hospital accepts no responsibility if the information is made available to any other person, INCLUDING THE PATIENT. Interpretation Summary * Name: SANCHEZ WATKINS Study Date: 08/03/2016 02:45 PM BP: 116/87 mmHg * Patient Location: .2E\S\E207\S\1 HR: 72 * : 1970 (M/d/yyyy) Gender: Female Height: 60 in * Age: 46 yrs Ethnicity: CA Weight: 182 lb * Ordering Physician: Sanchez Meade * Referring Physician: Self, Referred * Performed By: Sammi Alegre, [facility] * * Reason For Study: STROKE * BSA: 1.8 m2 * -- Conclusions -- * Normal LV chamber size and wall thickness. * Normal LV systolic function, EF 55-60%. * No segmental left ventricular wall motion abnormalities are noted. * Grade II diastolic dysfunction. * No significant valvular pathology. * Injection of contrast documented no interatrial shunt. Procedure Details * A complete two-dimensional transthoracic echocardiogram was performed (2D, M-mode, Doppler and color flow Doppler). * A saline contrast injection was performed to assess for cardiac shunting. * The injection was performed through an intravenous line in the right arm. * The attending nurse who injected the saline contrast was ENRIQUE DOUGHERTY, RN. * A total of 20 cc of agitated saline was given. Left Ventricle * The left ventricle is normal in size. * There is normal left ventricular wall thickness. * Ejection Fraction = 55-60%. * Left ventricular systolic function is normal. * No segmental left ventricular wall motion abnormalities are noted. * The left ventricular wall motion is normal. Right Ventricle * The right ventricular cavity size is normal (basal dimension <4.2 cm in right ventricular apical 4-chamber view). * The right ventricular systolic function is normal as assessed by tricuspid annular plane systolic excursion (TAPSE) (normal >1.5 cm). Atria * The left atrial size is normal. * Right atrium not well visualized. * Injection of contrast documented no interatrial shunt. * The interatrial septum is intact with no evidence for an atrial septal defect. Mitral Valve * The mitral valve is normal in structure and function. Tricuspid Valve * The tricuspid valve is normal in structure and function. Aortic Valve * The aortic valve is normal in structure and function. Pulmonic Valve * The pulmonary valve is not well seen, but the Doppler examination is normal without significant regurgitation or stenosis. Great Vessels * The aortic root is normal size. Pericardium/Pleural * There is no pericardial effusion. Left Ventricular Diastolic Function * Diastolic dysfunction, Grade II (pseudonormalization pattern). MMode 2D Measurements and Calculations IVSd 0.86 cm IVSs 1.4 cm LVIDd 4.1 cm LVIDs 2.9 cm LVPWd 0.81 cm LVPWs 1.2 cm IVS/LVPW 1.1 FS 29.2 % EDV(Teich) 76.2 ml ESV(Teich) 33.2 ml EF(Teich) 56.4 % EDV(cubed) 71.2 ml ESV(cubed) 25.3 ml EF(cubed) 64.5 % % IVS thick 64.1 % % LVPW thick 44.5 % LV mass(C)d 105.2 grams LV mass(C)dI 58.7 grams/m\S\2 LV mass(C)s 119.6 grams LV mass(C)sI 66.7 grams/m\S\2 SV(Teich) 43.0 ml SI(Teich) 24.0 ml/m\S\2 SV(cubed) 45.9 ml SI(cubed) 25.6 ml/m\S\2 Ao root diam 3.0 cm Ao root area 7.1 cm\S\2 LA dimension 2.5 cm LA/Ao 0.83 LVOT diam 2.0 cm LVOT area 3.0 cm\S\2 LVAd ap4 26.1 cm\S\2 LVLd ap4 7.4 cm EDV(MOD-sp4) 75.0 ml EDV(sp4-el) 77.9 ml LVAs ap4 15.7 cm\S\2 LVLs ap4 5.8 cm ESV(MOD-sp4) 35.1 ml ESV(sp4-el) 36.0 ml EF(MOD-sp4) 53.2 % EF(sp4-el) 53.8 % LVAd ap2 25.9 cm\S\2 LVLd ap2 7.1 cm EDV(MOD-sp2) 78.5 ml EDV(sp2-el) 80.1 ml LVAs ap2 15.1 cm\S\2 LVLs ap2 6.0 cm ESV(MOD-sp2) 32.8 ml ESV(sp2-el) 32.5 ml EF(MOD-sp2) 58.2 % EF(sp2-el) 59.5 % LVLd %diff -3.94 % EDV(MOD-bp) 77.7 ml LVLs %diff 2.8 % ESV(MOD-bp) 34.4 ml EF(MOD-bp) 55.8 % SV(MOD-sp4) 39.9 ml SI(MOD-sp4) 22.2 ml/m\S\2 SV(MOD-sp2) 45.7 ml SI(MOD-sp2) 25.5 ml/m\S\2 SV(MOD-bp) 43.3 ml SI(MOD-bp) 24.2 ml/m\S\2 SV(sp4-el) 42.0 ml SI(sp4-el) 23.4 ml/m\S\2 SV(sp2-el) 47.7 ml SI(sp2-el) 26.6 ml/m\S\2 Doppler Measurements and Calculations MV E max sofía 68.5 cm/sec MV A max sofía 55.5 cm/sec MV E/A 1.2 MV P1/2t max sofía 70.6 cm/sec MV P1/2t 87.1 msec MVA(P1/2t) 2.5 cm\S\2 MV dec slope 237.6 cm/sec\S\2 MV dec time 0.29 sec Ao V2 max 100.0 cm/sec Ao max PG 4.0 mmHg Ao max PG (full) 0.68 mmHg YOBANY(V,A) 2.8 cm\S\2 YOBANY(V,D) 2.8 cm\S\2 LV V1 max PG 3.3 mmHg LV V1 max 91.1 cm/sec
[2016-08-04] MEDS ORDERED: ASPIRIN 81 MG ECTAB PO SCH (09:00)
[2016-08-04] MEDS ORDERED: VENLAFAXINE HCL XR 75 MG CAPXR PO SCH (09:00)
[2016-08-04] MEDS ORDERED: OXYBUTYNIN CHLORIDE 5 MG TABCR PO SCH (09:00)
--- NOTE | 2016-08-04 11:17 | Progress Note ---
Subjective Date of Service: August 04, 2016. Subjective Pt evaluation today including: conversation w/ patient, physical exam, lab review, review of studies, review of inpatient medication list Saw/examined the patient in room 207 She's doing well, no facial numbness/tingling as that has resolved No motor dysfunction, no other issues to note Problem List Medical Problems: (1) Stroke-like symptoms Status: Acute Review of Systems Constitutional: No chills, No fever, No weakness Respiratory: No shortness of breath Cardiac: No chest pain Neurologic: No balance problems, No numbness/tingling, No paralysis, No vertigo , No weakness Medications Current Inpatient Medications Medications (Trade) Dose Ordered Sig/Harley Route Start Time Stop Time Status Last Admin Dose Admin Acetaminophen (Tylenol Tab) 650 mg Q4H PRN PO 08/03/16 13:15 09/02/16 13:14 08/03/16 23:24 650 MG Ondansetron HCl (Zofran Inj) 4 mg Q6H PRN IV 08/03/16 13:15 09/02/16 13:14 Aspirin (Ecotrin Tab) 81 mg QAM PO 08/04/16 09:00 09/03/16 08:59 08/04/16 08:06 81 MG Miscellaneous Information 1 ea 1 ea UD PRN N/A 08/03/16 13:15 09/02/16 13:14 Sodium Chloride (Nss 1000ml) 1,000 ml @ 100 mls/hr Q10H IV 08/03/16 13:45 09/02/16 13:44 08/04/16 08:07 100 MLS/HR Buspirone HCl (Buspar Tab) 5 mg BID PO 08/03/16 21:00 09/02/16 20:59 08/04/16 08:06 5 MG Levothyroxine Sodium (Synthroid Tab) 112 mcg DAILYBB PO 08/04/16 06:00 09/03/16 05:59 08/04/16 05:38 112 MCG Oxybutynin Chloride (Ditropan-Xl Tab) 5 mg DAILY PO 08/04/16 09:00 09/03/16 08:59 08/04/16 08:06 5 MG Venlafaxine HCl (effeXOR EXTENDED REL CAP) 225 mg DAILY PO 08/04/16 09:00 09/03/16 08:59 08/04/16 08:06 225 MG Objective Vital Signs Date Time Temp Pulse Resp B/P Pulse Ox O2 Delivery O2 Flow Rate FiO2 08/04/16 08:10 36.6 73 16 122/83 96 Room Air 08/04/16 08:00 96 Room Air 08/04/16 04:00 Room Air 08/04/16 03:25 36.7 69 16 113/79 96 Room Air 08/04/16 00:01 Room Air 08/03/16 23:20 36.6 73 16 105/64 97 Room Air 08/03/16 20:00 97 Room Air 08/03/16 19:21 36.4 74 18 115/73 97 Room Air 08/03/16 16:35 36.7 70 18 140/82 93 Room Air 08/03/16 16:00 98 Room Air 08/03/16 14:25 36.7 79 16 117/84 97 Room Air 08/03/16 13:14 37.3 75 18 116/87 95 08/03/16 12:48 78 08/03/16 12:00 70 16 134/84 96 Room Air Physical Exam General Appearance: no apparent distress Respiratory/Chest: chest non-tender, lungs clear, normal breath sounds, no respiratory distress, no accessory muscle use Cardiovascular: regular rate, rhythm, no edema, no murmur Abdomen: normal bowel sounds, non tender, soft Extremities: normal inspection, no pedal edema 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, no motor/sensory deficits, alert, normal mood/affect, oriented x 3 Skin: normal color Laboratory Results Last 24 Hours Test 08/04/16 05:55 White Blood Count 6.58 K/uL Red Blood Count 4.77 M/uL Hemoglobin 14.1 g/dL Hematocrit 42.2 % Mean Corpuscular Volume 88.5 fL Mean Corpuscular Hemoglobin 29.6 pg Mean Corpuscular Hemoglobin Concent 33.4 g/dl Platelet Count 288 K/uL Mean Platelet Volume 8.9 fL Neutrophils (%) (Auto) 35.9 % Lymphocytes (%) (Auto) 47.1 % Monocytes (%) (Auto) 8.8 % Eosinophils (%) (Auto) 7.1 % Basophils (%) (Auto) 0.9 % Neutrophils # (Auto) 2.36 K/uL Lymphocytes # (Auto) 3.10 K/uL Monocytes # (Auto) 0.58 K/uL Eosinophils # (Auto) 0.47 K/uL Basophils # (Auto) 0.06 K/uL RDW Standard Deviation 43.2 fL RDW Coefficient of Variation 13.3 % Immature Granulocyte % (Auto) 0.2 % Immature Granulocyte # (Auto) 0.01 K/uL Sodium Level 143 mmol/L Potassium Level 3.9 mmol/L Chloride Level 109 mmol/L Carbon Dioxide Level 29 mmol/L Anion Gap 5.0 mmol/L Blood Urea Nitrogen 11 mg/dl Creatinine 0.75 mg/dl Est Creatinine Clear Calc Drug Dose 85.8 ml/min Estimated GFR () 109.2 Estimated GFR (Non- 94.3 BUN/Creatinine Ratio 15.2 Random Glucose 103 mg/dl Calcium Level 7.9 mg/dl Magnesium Level 2.1 mg/dl Triglycerides Level 78 mg/dl Cholesterol Level 186 mg/dl HDL Cholesterol 68 mg/dl LDL Cholesterol, Calculated 102 mg/dl VLDL Cholesterol, Calculated 16 mg/dl Cholesterol/HDL Ratio 2.7 Vitamin B12 Level 673 pg/mL Thyroid Stimulating Hormone (TSH) 0.851 uIu/ml Lyme Disease IgM Antibody NEG Assessment and Plan This is a 46 year old female with a PMH of hypothyroidism, HTN, depression/ anxiety, overactive bladder presents with facial numbness Numbness/Tingling of L side of Face 08/[address], Brain MRI, MRA - no acute findings echo - normal LVEF, grade 2 diastolic dysfunction TSH, vitamin b12, Mg wnl Lyme negative will d/c on aspirin 81mg outpatient neurology follow-up 08/[address] negative Brain MRI/MRA of head/neck negative for acute findings echo done and results pending will check Lyme, B12, TSH, Mg neuro consult pending HTN restart Lisinopril on discharge Hypothyroidism continue Synthroid TSH wnl Depression/Anxiety continue home meds DVT ppx SCDs + ambulation FULL CODE
[2016-08-04] MEDS ORDERED: LSN5 PO (11:19)
[2016-08-04] MEDS ORDERED: ASPEC81 PO (11:19)
--- NOTE | 2016-08-04 11:26 | Discharge Instructions ---
Discharge Instructions Date of Service August 04, 2016. Admission Reason for Admission: Stroke-Like Symptoms, Tia Discharge Discharge Diagnosis / Problem: Facial Numbness; possibly Migrainous Discharge Goals Goal(s): Decrease discomfort, Improve function, Diagnostic testing, Therapeutic intervention Activity Recommendations Activity Limitations: resume your previous activity . Instructions / Follow-Up Instructions / Follow-Up Please follow-up with Dr. Smith on August 11 at 1:00PM You will be started on aspirin 81mg daily Your dose of lisinopril will be decreased from 10mg to 5mg Please follow-up with neurology Current Hospital Diet Patient's current hospital diet: AHA Diet (Heart Healthy) Discharge Diet Recommended Diet: Regular Diet Pending Studies Studies pending at discharge: no Laboratory Results Hemoglobin A1c Test 08/03/16 09:12 Range/Units Estimated Average Glucose 120 mg/dl Hemoglobin A1c 5.8 H 4.5-5.6 % Lipid Panel Test 08/04/16 05:55 Range/Units Triglycerides Level 78 0-150 mg/dl Cholesterol Level 186 0-200 mg/dl HDL Cholesterol 68 mg/dl Cholesterol/HDL Ratio 2.7 LDL Cholesterol, Calculated 102 mg/dl Medical Emergencies . Who to Call and When: Medical Emergencies: If at any time you feel your situation is an emergency, please call 911 immediately. . Non-Emergent Contact Non-Emergency issues call your: Primary Care Provider . . "Provider Documentation" section prepared by Angela Amor. . VTE Core Measure Inpt VTE Proph given/why not?: SCD's
--- NOTE | 2016-08-04 11:31 | Discharge Summary ---
Discharge Summary Date of Service August 04, 2016. Discharge Summary Admission Date: August 03, 2016 at 12:34 Discharge Date: August 04, 2016 Discharge Disposition: Home Principal Diagnosis: Facial Numbness, possibly Migrainous Medication Reconciliation New Medications: Aspirin (Aspirin EC Low Dose) 81 Mg Ectab 81 MG PO QAM for 30 Days, #30 TABS Changed Medications: Lisinopril (Lisinopril) 5 Mg Tab 5 MG PO DAILY for 30 Days, #30 TABS 1 Refill (Changed from: Lisinopril (Zestril ) 10 Mg Tab 10 Mg PO DAILY) Continued Medications: Buspirone Hcl (Buspirone Hcl) 5 Mg Tab 5 MG PO BID for 30 Days, #60 TAB 2 Refills Levothyroxine Sodium (Synthroid) 112 Mcg Tab 112 MCG PO DAILY Oxybutynin Chloride (Oxybutynin Chloride Er) 5 Mg Tab 5 MG PO DAILY Venlafaxine Hcl (Venlafaxine Hcl Er) 75 Mg Tab 225 MG PO DAILY Admission Information HPI (per Admitting provider): This is a 46 y/o female with PMH of HTN, hypothyroidism, depression, anxiety, and other problems listed below who presents to the ED with stroke like symptoms. The patient states at 8 am this morning while working in [employer] [place] she developed left ear high pitched noise and static in both ears, dizziness described as spinning, left facial numbness, left arm heaviness, and nausea. Pt states dizziness and nausea worsened with movement. All symptoms are now resolved except left facial numbness. She reports in the ER she started having a mild dull frontal MCRAE. Prior to this morning she was feeling well. This morning had her usual breakfast of protein drink and coffee. She denies vision change, facial droop, speech or swallowing difficulty, hearing loss, URI symptoms, cough, chest pain, palpitations, SOB, vomiting, diarrhea, dysuria, frequency, calf pain, edema, abnormal bleeding. Physical Exam (per Admitting): General Appearance: WD/WN, no apparent distress, + pertinent finding ( pleasant alert 46 y/o female, at bedside ) Head: normocephalic, atraumatic Eyes: normal inspection, PERRL, EOMI ENT: normal ENT inspection, hearing grossly normal, TMs normal, pharynx normal Neck: no JVD, trachea midline Respiratory/Chest: lungs clear, normal breath sounds, no respiratory distress, no accessory muscle use Cardiovascular: regular rate, rhythm, no murmur Abdomen/GI: normal bowel sounds, non tender, soft Extremities/Musculoskelatal: no calf tenderness, no pedal edema Neurologic/Psych: alert, normal mood/affect, oriented x 3, + pertinent finding (no facial droop. no dysarthria. + subjective decreased sensation on left face. no motor or sensory deficits of the extremities.) Skin: normal color, warm/dry Hospital Course This is a 46 year old female with a PMH of hypothyroidism, HTN, depression/ anxiety, overactive bladder presents with facial numbness Numbness/Tingling of L side of Face 08/[address], Brain MRI, MRA - no acute findings echo - normal LVEF, grade 2 diastolic dysfunction TSH, vitamin b12, Mg wnl Lyme negative will d/c on aspirin 81mg outpatient neurology follow-up 08/[address] negative Brain MRI/MRA of head/neck negative for acute findings echo done and results pending will check Lyme, B12, TSH, Mg neuro consult pending HTN restart Lisinopril on discharge Hypothyroidism continue Synthroid TSH wnl Depression/Anxiety continue home meds DVT ppx SCDs + ambulation FULL CODE Total time spent on discharge = 32 minutes This includes examination of the patient, discharge planning, medication reconciliation, and communication with other providers. Discharge Instructions Please follow-up with Dr. Smith on August 11 at 1:00PM You will be started on aspirin 81mg daily Your dose of lisinopril will be decreased from 10mg to 5mg Please follow-up with neurology Additional Copies To Filemon Smith M.D.
[2016-08-04 11:54] VITALS: BP 110/76; PULSE 75; TEMP 36.7; O2SAT 97
[2016-08-04 12:00] VITALS: O2SAT 96
== END 2016-08-04 12:16 | disposition home or self-care (01) | DRG 103 ==
LOC: ENRESERVDT → ENRESERVTM → EDBD 08:42 → C.EDB 08:43 → C.2E 12:34
PROVIDERS: ADMIT Family Medicine; ATTEND Family Medicine
DX: G43.909 Migraine, unspecified, not intractable, without status migrainosus (principal); R20.2 Paresthesia of skin; R53.1 Weakness; I10 Essential (primary) hypertension; E03.9 Hypothyroidism, unspecified; N32.81 Overactive bladder; F32.9 Major depressive disorder, single episode, unspecified; F41.9 Anxiety disorder, unspecified; Z87.891 Personal history of nicotine dependence; Z79.899 Other long term (current) drug therapy